=== PATIENT | male | born 1975 | race Caucasian/White ===

== ENCOUNTER 2018-08-04 08:27 | Emergency (ER) | payer BC ==
[~2018-08-04] VITALS: Ht 180.3 cm; Wt 79.4 kg
[2018-08-04 08:27] VITALS: BP_SYST 136
--- NOTE | 2018-08-04 08:30 | NUR ---
BROUGHT BACK TO BED #8 AND TRIAGED.REPORT GIVEN TO NITO
--- NOTE | 2018-08-04 08:40 | NUR ---
ER Dr. Marquez at bedside examining patient.
[2018-08-04] MEDS ORDERED: DIPHENHYDRAMINE INJ 50 MG/ML VIAL IVP ONE (09:00)
[2018-08-04] MEDS ORDERED: MORPHINE 4 MG/ML INJ. SYRINGE IVP ONE (09:00)
[2018-08-04] MEDS ORDERED: PIPERACILLIN/TAZO 3.38 GM in NS 50 ML IV ONE (09:00)
--- NOTE | 2018-08-04 09:02 | NUR ---
Patient is awake, alert, and oriented x4. Patient is complaining pressure pain 10/10 in abdomen and back for 3-4 days. Patient has a medical history of DM and shoulder surgery.
[2018-08-04] MEDS ORDERED: PIPERACILLIN/TAZOBACTAM 3.375 GM/VIAL (ZOSYN) IV ONE (09:09)
[2018-08-04 09:23] LABS: HEMATOCRIT 47.3 % (36-54); HEMOGLOBIN 15.9 g/dL (14.0-18.0); RED BLOOD CELL COUNT(AUTO) 5.11 MIL/uL (4.2-6.2); WHITE BLOOD COUNT (AUTO) 8.3 K/uL (4.8-10.8)
[2018-08-04 09:24] LABS: BASOPHILS % (AUTO) 0.4 % (0.0-2.0); EOSINOPHILS # (AUTO) 0.2 K/uL (0.0-0.4); EOSINOPHILS % (AUTO) 2.1 % (0.0-4.0); LYMPHOCYTES # (AUTO) 1.3 K/uL (1.0-5.5); LYMPHOCYTES % (AUTO) 15.5 % (20.5-51.5); MEAN CORPUSCULAR HEMOGLOBIN 31 pg (27-31); MEAN CORPUSCULAR HGB CONC 34 % (32-36); MEAN CORPUSCULAR VOLUME 93 fL (79.0-98.0); MONOCYTES # (AUTO) 0.6 K/uL (0.0-1.0); MONOCYTES % (AUTO) 6.9 % (1.7-9.3); NEUTROPHILS # (AUTO) 6.2 K/uL (1.8-7.7); NEUTROPHILS % (AUTO) 75.1 % (40.0-70.0); PLATELET COUNT (AUTO) 299 K/uL (130-430); RED CELL DISTRIBUTION WIDTH 13.3 % (9.0-15.0)
[2018-08-04 09:38] LABS: PROTHROMBIN TIME 9.9 SECS (9.5-12.5)
[2018-08-04 09:44] LABS: CREATININE 0.62 mg/dL (0.55-1.30); POTASSIUM 4.1 mmol/L (3.5-5.1)
[2018-08-04] MEDS ORDERED: NACL 0.9% 1,000 ML IV ONE (09:45)
[2018-08-04 09:48] LABS: TOTAL BILIRUBIN 0.5 mg/dL (0.0-1.0)
[2018-08-04] MEDS ORDERED: MAGNESIUM CITRATE 300 ML ORAL SOLUTION PO ONE (11:00)
[2018-08-04 11:02] LABS: BILIRUBIN,URINE NEGATIVE (NEGATIVE); BLOOD, URINE NEGATIVE (NEGATIVE); CLARITY/URINE CLOUDY (CLEAR); COLOR,URINE YELLOW (YELLOW); GLUCOSE,URINE NEGATIVE (NEGATIVE); KETONES,URINE NEGATIVE (NEGATIVE); LEUKOCYTE ESTERASE ,URINE NEGATIVE (NEGATIVE); NITRITE, URINE NEGATIVE (NEGATIVE); PROTEIN URINE NEGATIVE (NEGATIVE); UROBILINOGEN,URINE 0.2 (0.2-1.0)
[2018-08-04 11:03] VITALS: BP_SYST 130
[2018-08-04 11:11] LABS: BACTERIA,URINE None Seen /HPF (None Seen); RBC,URINE 0-3 /HPF (0-3); URINE AMORPHOUS PHOSPHATES 4+ /HPF (None Seen); WBC,URINE NONE SEEN /HPF (0-3)
== END 2018-08-04 11:04 | disposition home or self-care (01) ==
LOC: SED 08:27
DX: K59.00 Constipation, unspecified (principal); E11.9 Type 2 diabetes mellitus without complications
CPT/HCPCS: 36415; 71045; 74176; 80053; 81000; 83605; 83690; 85025; 85610; 87040; 96365; 96375; 99284; J1200; J2270; J2543; J7030